=== PATIENT | female | born 1985 | race Caucasian/White ===

== ENCOUNTER 2016-06-26 14:43 | Emergency (ER) ==
[2016-06-26 15:01] VITALS: BP 108/64
--- NOTE | 2016-06-26 16:24 | PROVIDER DOCUMENTATION ---
[facility]-EENT General - General Chief Complaint: Mouth Pain Stated Complaint: ABSCESS Time Seen by Provider: 06/26/16 16:19 Source: patient Allergies/Adverse Reactions: Patient Allergies Allergy/AdvReac Type Severity Reaction Status Date / Time No Known Allergies Allergy Verified 01/20/16 16:46 Home Medications: Home Medication List Medication Instructions Recorded Confirmed Last Taken Type No Home Medications 06/26/16 06/26/16 Unknown History - History of Present Illness-EENT General Nature of Presenting Problem: Pt is 31 y/o F presents to the ED with lower R side dental pain. Pt states pain started two days ago. Pt states wisdom teeth are coming in. Pt states has an appointment with an oral surgeon for removal of wisdom teeth next week. Pt denies F EENT Location: reports: facial (R side jaw swelling), dental (R lower) Quality of Pain: reports: aching Severity: reports: mild Onset/Duration: reports: 2 days ago Timing: reports: still present, intermittent Prearrival Treatment: Initiated no prearrival treatment Associated Symptoms: reports: facial pain/swelling (swelling R lower), tooth pain. denies: change in hearing, cough, drooling, ear drainage, fever, malaise , nasal congestion/drainage, poor fluid intake, poor solids intake, sinus infection, sore throat, voice change Locality of Occurance: Home Similar Symptoms Previously?: Yes Recently seen or treated by another doctor?: No - Eyes Eye Problem Symptoms: denies: eye pain Eye Problem Context: reports: none - Ears Ear Problem Symptoms: reports: none - Throat/Dental Throat/Dental Problem Symptoms: reports: toothache (R lower), jaw pain (R). denies: sore throat, swelling of jaw/face, trouble breathing, throat swelling, unable to swallow Recently seen a dentist or have an appointment?: No Review of Systems - Adult - REVIEW OF SYSTEMS - ADULT Constitutional: denies: chills, fever Eyes: denies: blurred vision, double vision Ears, Nose, Mouth & Throat: reports: mouth/dental pain (dental pain). denies: ear pain, nose pain, throat pain Cardiovascular: denies: chest pain, heart murmur, irregular heart rate Respiratory: denies: cough, shortness of breath, wheezing Gastrointestinal: denies: abdominal pain, diarrhea, frequent heartburn, nausea, vomiting Genitourinary: denies: dysuria, discharge, hematuria Musculoskeletal: denies: bone pain, joint pain, neck pain Integumentary: denies: hair loss, itching, rash Neurological: denies: dizziness/vertigo, headache/migraines Psychiatric: reports: no symptoms reported Endocrine: reports: no symptoms reported Hematologic/Lymphatic: reports: no symptoms reported Allergic/Immunologic: reports: no symptoms reported All Other Systems: Reviewed and Negative Past History - Adult - PAST MEDICAL HISTORY-ADULT Review of Records: reports: Nursing Assessment Review, Medications Reviewed, Social history reviewed & non-contributory. Major Childhood Illnesses: reports: denies history Cardiovascular: reports: denies history Respiratory: reports: denies history Gastrointestinal: reports: denies history Obstetrical/Gynecological: reports: ovarian cysts Genitourinary: reports: denies history Musculoskeletal: reports: denies history Neurological: reports: denies history Psychiatric: reports: depression Endocrine/Immune: reports: denies history Other Conditions: reports: denies history - PRIOR SURGERIES/PROCEDURES Surgical/Procedure History: reports: appendectomy, BTL, other (tubal ligation ) - IMMUNIZATION STATUS Childhood Immunizations: See Nurse Assessment Flu Vaccine: See Nurse Assessment - FAMILY HISTORY Family History: reviewed, not pertinent - SOCIAL HISTORY Smoking: denies Substance Use: denies Living Situation: family Physical Exam- EENT - Physical Exam EENT Initial Vital Signs Reviewed: Yes General Appearance: appears well, alert, no apparent distress Eye Exam: bilateral eye: normal inspection, PERRL, EOMI Ear Exam: bilateral ear: auricle normal, canal normal, TM normal Nasal Exam: normal inspection Throat Exam: pharynx normal, dental tenderness (R lower) Neck: non-tender, full range of motion, supple, normal inspection Respiratory: chest non-tender, lungs clear, normal breath sounds, no pleuratic chest pain, no respiratory distress, no accessory muscle use Cardiovascular: normal peripheral pulses, regular rate, rhythm, no edema, no gallop, no JVD, no murmur Abdominal Exam: normal bowel sounds, non tender, soft, no organomegaly, no pulsatile mass Lymphatic: no adenopathy Back Exam: normal inspection, no CVA tenderness, no vertebral tenderness Extremity: normal range of motion, non-tender, normal gait, normal inspection, no pedal edema, no calf tenderness, normal capillary refill, pelvis stable Integumentary: normal color, normal turgor, warm/dry 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, grossly normal, no motor/sensory deficits Psych/Mental Status: normal mood/affect, normal thought content, normal thought process, oriented x 3 Progress - PLAN OF CARE/RESULTS Progress/Plan/Lab Results: Vital Signs - 24 hr 06/26/16 14:58 Temperature 98.9 F Pulse Rate 81 Respiratory 18 Rate Blood Pressure 108/64 O2 Sat by Pulse 99 Oximetry Departure - Departure Time of Disposition Order: 16:24 DIAGNOSIS: Dental decay Disposition: HOME 01 Certified Medical Emergency: Emergent Condition: Stable Additional Instructions: ED Follow Up Instructions: You have been treated by a care provider in the Emergency Department. These instructions are being provided to you so you can have an understanding of how to care for yourself upon discharge. Upon discharge from the Emergency Department, you are responsible for making arrangements for follow-up care by a physician of your choice. Take all prescribed medications as directed. Return to the Emergency Department immediately for any new or worsening symptoms. You may call the Physician Referral phone number at [phone] to obtain a list of Physicians who are taking new patients. Attestation - Scribe Verification/Attestation Scribe:: Liberty Del Cid Acting as Scribe for:: Shady Calabrese Scribe documention review:: This chart was documented by a scribe and accurately reflects the service the provider performed and the decisions made by the provider.
== END 2016-06-26 16:31 | disposition home or self-care (01) ==
LOC: P.ED 14:43
DX: K02.9 Dental caries, unspecified (principal); K08.89 Other specified disorders of teeth and supporting structures; R22.0 Localized swelling, mass and lump, head; R68.84 Jaw pain; Z79.899 Other long term (current) drug therapy
CPT/HCPCS: 99282

== ENCOUNTER 2016-06-28 08:24 | Emergency (ER) ==
[2016-06-28] MEDS ORDERED: CLINDAMYCIN IM ONE (09:26)
[2016-06-28] MEDS ORDERED: MARCAINE 0.5% PF INJ ONE (09:27)
[2016-06-28] MEDS ORDERED: XYLOCAINE 1% INJ ONE (09:27)
--- NOTE | 2016-06-28 09:32 | PROVIDER DOCUMENTATION ---
HPI-EENT General - General Chief Complaint: Toothache Stated Complaint: DENTAL ABSCESS Time Seen by Provider: 06/28/16 09:19 Source: patient Allergies/Adverse Reactions: Patient Allergies Allergy/AdvReac Type Severity Reaction Status Date / Time No Known Allergies Allergy Verified 06/28/16 09:17 Home Medications: Home Medication List Medication Instructions Recorded Confirmed Last Taken Type Amoxicillin/Pot Clavulanate 875 mg PO Q12HR #14 tablet 06/28/16 Unknown Rx [Augmentin] Hydrocodone/APAP 7.5 mg/325 mg 1 each PO Q6H PRN PRN #10 tablet 06/28/16 Unknown Rx [[place]mont-7.5] Ibuprofen [Motrin] 800 mg PO Q8H PRN PRN #20 tablet 06/28/16 Unknown Rx Omeprazole [Prilosec] 20 mg PO DAILY@0700 #20 capsule 06/28/16 Unknown Rx - History of Present Illness-EENT General Nature of Presenting Problem: Pt is a 31 y/o F c chief complaint R dental pain x 3-5 days c possible abscess on the lateral aspect of her R lower gum line. Pt denies any fever, chills, swelling throat, trismus. On arrival, pt is in minimal distress and afebrile. Pt has an extensive h/o dental decay. Review of Systems - Adult - REVIEW OF SYSTEMS - ADULT Constitutional: reports: no symptoms reported. denies: chills, fatique Eyes: reports: no symptoms reported. denies: blurred vision, double vision Ears, Nose, Mouth & Throat: reports: mouth/dental pain, mouth swelling. denies : ear pain, nose pain, hoarseness, throat pain Cardiovascular: reports: no symptoms reported. denies: chest pain, orthopnea Respiratory: reports: no symptoms reported. denies: cough, shortness of breath Gastrointestinal: reports: no symptoms reported. denies: abdominal pain, nausea Genitourinary: reports: no symptoms reported. denies: dysuria, frequent UTI's, hematuria Musculoskeletal: reports: no symptoms reported. denies: joint pain, joint swelling Integumentary: reports: no symptoms reported. denies: hives, itching Neurological: reports: no symptoms reported. denies: numbness, paresthesia Psychiatric: reports: no symptoms reported. denies: anxiety, emotional problems Endocrine: reports: no symptoms reported. denies: cold intolerance, heat intolerance Hematologic/Lymphatic: reports: no symptoms reported. denies: blood clots, low blood count Allergic/Immunologic: reports: no symptoms reported. denies: allergic reactions , food allergy All Other Systems: Reviewed and Negative Past History - Adult - PAST MEDICAL HISTORY-ADULT Review of Records: reports: Old Records Reviewed, Nursing Assessment Review, Medications Reviewed, Social history reviewed & non-contributory. Major Childhood Illnesses: reports: denies history Cardiovascular: reports: denies history Respiratory: reports: denies history Gastrointestinal: reports: denies history Obstetrical/Gynecological: reports: ovarian cysts Genitourinary: reports: denies history Musculoskeletal: reports: denies history Neurological: reports: denies history Psychiatric: reports: depression Endocrine/Immune: reports: denies history Other Conditions: reports: denies history - PRIOR SURGERIES/PROCEDURES Surgical/Procedure History: reports: appendectomy, BTL, other (tubal ligation ) - IMMUNIZATION STATUS Childhood Immunizations: See Nurse Assessment Flu Vaccine: See Nurse Assessment - FAMILY HISTORY Family History: reviewed, not pertinent - SOCIAL HISTORY Smoking: denies Substance Use: none/never Alcohol Use Frequency: never Living Situation: family Physical Exam- EENT - Physical Exam EENT Initial Vital Signs Reviewed: Yes General Appearance: appears well, alert, no apparent distress Eye Exam: bilateral eye: normal inspection, PERRL, EOMI Ear Exam: bilateral ear: auricle normal, canal normal, TM normal Nasal Exam: normal inspection Throat Exam: normal mouth inspection, pharynx normal, dental tenderness Mouth,Throat: 1 - 1cm abscess to lateral gum line Neck: non-tender, full range of motion, supple Respiratory: chest non-tender, lungs clear, normal breath sounds Cardiovascular: normal peripheral pulses, regular rate, rhythm, no edema Abdominal Exam: normal bowel sounds, non tender, soft Lymphatic: no adenopathy Back Exam: normal inspection, no CVA tenderness, no vertebral tenderness Extremity: normal range of motion, non-tender, normal gait Integumentary: normal color, normal turgor, warm/dry Neurologic: grossly normal, no motor/sensory deficits Psych/Mental Status: normal mood/affect, normal thought content, normal thought process, oriented x 3 Progress - PLAN OF CARE/RESULTS Progress/Plan/Lab Results: Orders Category Date Time Status I&D [I and D Set up] DIRECTED Care 06/28/16 09:27 Active Bupivacaine Pf 0.5% [Marcaine 0.5% Pf] Med 06/28/16 09:27 Discontinued 5 ml INJ NOW ONE Clindamycin Med 06/28/16 09:26 Discontinued 600 mg IM NOW ONE Lidocaine 1% [Xylocaine 1%] Med 06/28/16 09:27 Discontinued 5 ml INJ NOW ONE Vital Signs - 24 hr 06/28/16 08:29 Temperature 97.8 F Pulse Rate 74 Respiratory 18 Rate Blood Pressure 105/61 O2 Sat by Pulse 100 Oximetry Procedures - INCISION & DRAINAGE Site: R lower peridontal Abscess Type: Other (peridontal) Anesthetic: 0.5%, 1%, Lidocaine/Xylocaine, Bupivicaine/Marcaine Volume of Anesthetic (ml's): 5 Blade Size: 11 Packing placed?: No Sterile Dressing Applied?: No Drainage: Purulent, Small Amount Procedure Comment: 10 - ENT PROCEDURES Nerve Block: Mandibular, Dental Anesthetic: 0.5%, 1%, Lidocaine/Xylocaine, Bupivicaine/Marcaine Volume of Anesthetic (ml's): 5 Departure - Departure Time of Disposition Order: 09:44 DIAGNOSIS: Dental decay, Dental abscess Disposition: HOME 01 Certified Medical Emergency: Emergent Condition: Stable Additional Instructions: FOLLOW UP WITH A DENTIST SOON POSSIBLE. ED Follow Up Instructions: You have been treated by a care provider in the Emergency Department. These instructions are being provided to you so you can have an understanding of how to care for yourself upon discharge. Upon discharge from the Emergency Department, you are responsible for making arrangements for follow-up care by a physician of your choice. Take all prescribed medications as directed. Return to the Emergency Department immediately for any new or worsening symptoms. You may call the Physician Referral phone number at [phone] to obtain a list of Physicians who are taking new patients. Prescriptions: Amoxicillin/Pot Clavulanate [Augmentin] 875 mg PO Q12HR #14 tablet Ibuprofen [Motrin] 800 mg PO Q8H PRN PRN #20 tablet PRN Reason: inflammation Hydrocodone/APAP 7.5 mg/325 mg [[place]-7.5] 1 each PO Q6H PRN PRN #10 tablet PRN Reason: Pain Omeprazole [Prilosec] 20 mg PO DAILY@0700 #20 capsule Referrals: None,PCP [Primary Care Provider] - Instructions: Dental Abscess Attestation - Physician/ LETY Attestation Patient care was provided by Advanced Practice Provider:: Yes Advanced Practice Provider:: Pawel Lagos Advanced Practice Provider documentation review:: The Mid-level provider documentation, treatment plan and medical decision making was reviewed by the physician who agrees with all treatment and medical decision making by the MLP.
[2016-06-28] MEDS ORDERED: DILAUDID IM ONE (10:14)
[2016-06-28] MEDS ORDERED: ZOFRAN ODT PO ONE (10:14)
[2016-06-28 10:48] VITALS: BP 111/69
== END 2016-06-28 10:48 | disposition home or self-care (01) ==
LOC: SUPCPDRO 08:24 → ED 08:24
DX: K04.7 Periapical abscess without sinus (principal); K02.9 Dental caries, unspecified; K08.89 Other specified disorders of teeth and supporting structures
CPT/HCPCS: J1170; S0020; S0077